=== PATIENT | female | born 1940 | race Caucasian/White ===

== ENCOUNTER 2017-02-15 22:46 | Observation (INO) | payer OTHER ==
--- NOTE | 2017-02-15 23:10 | CPEKG ---
Heart Rate: 88 RR Interval: 682 P-R Interval: 248 QRSD Interval: 90 QT Interval: 392 QTC Interval: 475 P [place]: 49 QRS [place]: 13 T Wave [place]: 15 EKG Severity - ABNORMAL ECG - EKG Impression: SINUS RHYTHM EKG Impression: FIRST DEGREE AV BLOCK EKG Impression: BORDERLINE T ABNORMALITIES, ANTERIOR LEADS Electronically Signed By: Cleveland Nelson 16-Feb-2017 05:57:08
[2017-02-15 23:23] LABS: % IMMATURE GRANULYOCYTES 0.6 % (0.0-1.1); ABSOLUTE IMMATURE GRANULOCYTES 0.05 10^3/uL (0.00-0.10); ADD DIFF? NO; ADD MORPH? NO; ADD SCAN? NO; ATYPICAL LYMPHOCYTE FLAG 0 (0-99); FRAGMENT RBC FLAG 0 (0-99); HEMATOCRIT 41.5 % (38.0-47.0); HEMOGLOBIN 14.4 g/dL (12.6-16.3); LEFT SHIFT FLG 0 (0-99); LIPEMIA HEMOLYSIS FLAG 90 (0-99); MEAN CELL HEMOGLOBIN CONCENTR. 34.7 g/dL (32.4-36.7); MEAN CELL VOLUME 95.2 fL (81.5-99.8); MEAN PLATELET VOLUME 8.8 fL (8.7-11.7); PLATELET CLUMPS FLAG 0 (0-99); PLATELET COUNT 266 10^3/uL (150-400); RED BLOOD CELL COUNT 4.36 10^6/uL (4.18-5.33); RED CELL DISTRIBUTION WIDTH 13.1 % (11.5-15.2)
[2017-02-16 00:12] LABS: ANION GAP 11 mEq/L (8-16); CALCIUM 9.6 mg/dL (8.5-10.4); CARBON DIOXIDE 24 mEq/l (22-31); CHLORIDE 101 mEq/L (97-110); CREATININE 0.7 mg/dL (0.6-1.0); GLOMERULAR FILTRATION RATE > 60; GLUCOSE 133 mg/dL (70-100); SODIUM 136 mEq/L (134-144)
[2017-02-16] MEDS ORDERED: NS 1,000 ML IV SCH ×2 (00:15→05:00)
[2017-02-16 00:18] LABS: COLOR PALE YELLOW; LEUKOCYTE ESTERASE,URINE NEGATIVE (NEGATIVE); NITRITE,URINE NEGATIVE (NEGATIVE)
[2017-02-16 00:24] LABS: TROPONIN I < 0.012 ng/mL (0-0.034)
--- NOTE | 2017-02-16 00:26 | EDPHY ---
H & P Stated Complaint: slurred speech, left sided weakness in hand and foot Time Seen by Provider: 02/15/17 22:57 HPI/ROS: Chief Complaint: Slurred speech, left-sided weakness HPI: 76-year-old woman who drove from [place] all day today. Patient states that she has noted that she has had some weakness in her left side in her left leg all day. Family also noted that she had a little bit of slurring of her speech. The attributed this to some fatigue and dehydration. Patient states when she finally wrapped in [place] she was able to walk up the stairs to get into her family's house. Patient states that symptoms have been present since at least 4 or 5 o'clock in the morning. Does not have a history of the same. No recent illness. No fevers or chills. No nausea or vomiting. No chest pain or shortness of breath. ROS: 10 point Review of Systems is negative except as noted in the HPI. PMH: Breast cancer in 1998 Social History: No smoking, no alcohol, no recreational drug use Family History: non-contributory Physical Exam: Gen: Awake, Alert, No Distress HEENT: Nose: no rhinorrhea Eyes: PERRLA, EOMI Mouth: Dry Neck: Supple, no JVD Chest: nontender, lungs clear to auscultation Heart: S1, S2 normal, no murmur Abd: Soft, non-tender, no guarding Back: no CVA tenderness, no midline tenderness Ext: no edema, non-tender Skin: no rash Neuro: See NIH score Sensation grossly intact, Strength 5/5 in bilateral upper and lower extremities - Personal History Current Tetanus/Diphtheria Vaccine: Unsure Current Tetanus Diphtheria and Acellular Pertussis (TDAP): Unsure - Medical/Surgical History Hx Asthma: No Hx Chronic Respiratory Disease: No Hx Diabetes: No Hx Cardiac Disease: No Hx Renal Disease: No Hx Cirrhosis: No Hx Alcoholism: No Hx HIV/AIDS: No Hx Splenectomy or Spleen Trauma: No Other PMH: right breast CA 1998 Constitutional: Initial Vital Signs Heart Rate 94 02/15/17 22:48 Respiratory Rate 18 02/15/17 22:48 Blood Pressure 169/109 H 02/15/17 22:48 O2 Sat (%) 92 02/15/17 22:48 O2 Delivery Mode Nasal Cannula O2 (L/minute) 2 Allergies/Adverse Reactions: No Known Allergies Allergy (Unverified 02/15/17 22:51) Home Medications: Medication Instructions Recorded NK [No Known Home Meds] 02/15/17 Medical Decision Making - Diagnostics Imaging Results: Imaging Impressions Head CT 02/15/17 22:58 Impression: Elderly brain with mild atrophy and probable small vessel disease. Nothing acute is identified. Imaging: Discussed imaging studies w/ call center receptionist Radiologist ED Course/Re-evaluation: 76 year old with symptoms of TIA. Now with slight ataxia L leg. Pt sx present since 5am. No indication for thrombolytics at this time. We have discussed with Dr. Rahman, hospitalist. Will admit to her service for further evaluation. - Data Points Laboratory Results: Laboratory Results 02/15/17 23:13 02/15/17 23:13 02/15/17 02/15/17 02/15/17 23:50 23:13 23:13 WBC 8.87 10^3/uL 10^3/uL (3.80-9.50) RBC 4.36 10^6/uL 10^6/uL (4.18-5.33) Hgb 14.4 g/dL g/dL (12.6-16.3) POC Hgb Hct 41.5 % % (38.0-47.0) POC Hct MCV 95.2 fL fL (81.5-99.8) MCH 33.0 pg pg (27.9-34.1) MCHC 34.7 g/dL g/dL (32.4-36.7) RDW 13.1 % % (11.5-15.2) Plt Count 266 10^3/uL 10^3/uL (150-400) MPV 8.8 fL fL (8.7-11.7) Neut % (Auto) 84.6 % H % (39.3-74.2) Lymph % (Auto) 8.0 % L % (15.0-45.0) [place] % (Auto) 6.1 % % (4.5-13.0) Eos % (Auto) 0.2 % L % (0.6-7.6) Baso % (Auto) 0.5 % % (0.3-1.7) Nucleat RBC Rel Count 0.0 % % (0.0-0.2) Absolute Neuts (auto) 7.51 10^3/uL H 10^3/uL (1.70-6.50) Absolute Lymphs (auto) 0.71 10^3/uL L 10^3/uL (1.00-3.00) Absolute Monos (auto) 0.54 10^3/uL 10^3/uL (0.30-0.80) Absolute Eos (auto) 0.02 10^3/uL L 10^3/uL (0.03-0.40) Absolute Basos (auto) 0.04 10^3/uL 10^3/uL (0.02-0.10) Absolute Nucleated RBC 0.00 10^3/uL 10^3/uL (0-0.01) Immature Gran % 0.6 % % (0.0-1.1) Immature Gran # 0.05 10^3/uL 10^3/uL (0.00-0.10) POC Sodium Sodium 136 mEq/L mEq/L (134-144) POC Potassium Potassium 4.0 mEq/L mEq/L (3.5-5.2) POC Chloride Chloride 101 mEq/L mEq/L (97-110) Carbon Dioxide 24 mEq/l mEq/l (22-31) Anion Gap 11 mEq/L mEq/L (8-16) POC BUN BUN 17 mg/dL mg/dL (7-23) Creatinine 0.7 mg/dL mg/dL (0.6-1.0) POC Creatinine Estimated GFR > 60 Glucose 133 mg/dL H mg/dL (70-100) POC Glucose Calcium 9.6 mg/dL mg/dL (8.5-10.4) Troponin I < 0.012 ng/mL ng/mL (0-0.034) Urine Color PALE YELLOW Urine Appearance CLEAR Urine pH 6.0 (5.0-7.5) Ur Specific [place] 1.012 (1.002-1.030) Urine Protein NEGATIVE (NEGATIVE) Urine Ketones TRACE H (NEGATIVE) Urine Blood NEGATIVE (NEGATIVE) Urine Nitrate NEGATIVE (NEGATIVE) Urine Bilirubin NEGATIVE (NEGATIVE) Urine Urobilinogen NEGATIVE EU EU (0.2-1.0) Ur Leukocyte Esterase NEGATIVE (NEGATIVE) Urine Glucose NEGATIVE (NEGATIVE) 02/15/17 23:06 WBC RBC Hgb POC Hgb 13.6 gm/dL gm/dL (12.6-16.3) Hct POC Hct 40 % % (38-47) MCV MCH MCHC RDW Plt Count MPV Neut % (Auto) Lymph % (Auto) [place] % (Auto) Eos % (Auto) Baso % (Auto) Nucleat RBC Rel Count Absolute Neuts (auto) Absolute Lymphs (auto) Absolute Monos (auto) Absolute Eos (auto) Absolute Basos (auto) Absolute Nucleated RBC Immature Gran % Immature Gran # POC Sodium 139 mEq/L mEq/L (134-144) Sodium POC Potassium 3.7 mEq/L mEq/L (3.3-5.0) Potassium POC Chloride 97 mEq/L mEq/L (97-110) Chloride Carbon Dioxide Anion Gap POC BUN 17 mg/dL mg/dL (7-23) BUN Creatinine POC Creatinine 0.7 mg/dL mg/dL (0.6-1.0) Estimated GFR Glucose POC Glucose 134 mg/dL H mg/dL (70-100) Calcium Troponin I Urine Color Urine Appearance Urine pH Ur Specific [place] Urine Protein Urine Ketones Urine Blood Urine Nitrate Urine Bilirubin Urine Urobilinogen Ur Leukocyte Esterase Urine Glucose Point of Care Test Results: 02/15/17 23:06 POC Sodium 139 POC Potassium 3.7 POC Chloride 97 POC BUN 17 POC Creatinine 0.7 POC Glucose 134 H Departure - Departure Disposition: [facility] Inpatient Acute Clinical Impression: Transient cerebral ischemia Condition: Fair NIH Stroke Scale Date of Exam: 02/15/17 Time of Exam: 23:10 Level of Consciousness: Alert LOC Questions: Answers Both LOC Commands: Performs Both Correctly Best Gaze: Normal Visual: No Visual Loss Facial Palsy: Normal Motor Arm-Left: No Drift Motor Arm-Right: No Drift Motor Leg-Left: No Drift Motor Leg-Right: No Drift Limb Ataxis: Present in One Limb Sensory: Normal Best Language: No Aphasia Dysarthria: Normal Extinction and Inattention (Neglect): No Abnormality NIH Scale Score: 1
[2017-02-16] MEDS ORDERED: ONDANSETRON DISINTEGRATING 4 MG TAB PO PRN (04:47)
[2017-02-16] MEDS ORDERED: ONDANSETRON 4 MG/2 ML VIAL IVP PRN (04:47)
[2017-02-16] MEDS ORDERED: ACETAMINOPHEN 325 MG TAB PO PRN (04:47)
[2017-02-16] MEDS ORDERED: HYDROCODONE/APAP 5/325 TAB PO PRN (04:47)
[2017-02-16 05:27] LABS: % IMMATURE GRANULYOCYTES 0.3 % (0.0-1.1); ABSOLUTE IMMATURE GRANULOCYTES 0.02 10^3/uL (0.00-0.10); ADD DIFF? NO; ADD MORPH? NO; ADD SCAN? NO; ATYPICAL LYMPHOCYTE FLAG 0 (0-99); FRAGMENT RBC FLAG 0 (0-99); HEMATOCRIT 37.5 % (38.0-47.0); HEMOGLOBIN 12.7 g/dL (12.6-16.3); LEFT SHIFT FLG 0 (0-99); LIPEMIA HEMOLYSIS FLAG 90 (0-99); MEAN CELL HEMOGLOBIN 32.4 pg (27.9-34.1); MEAN CELL HEMOGLOBIN CONCENTR. 33.9 g/dL (32.4-36.7); MEAN CELL VOLUME 95.7 fL (81.5-99.8); MEAN PLATELET VOLUME 8.5 fL (8.7-11.7); PLATELET CLUMPS FLAG 0 (0-99); PLATELET COUNT 213 10^3/uL (150-400); RED BLOOD CELL COUNT 3.92 10^6/uL (4.18-5.33); RED CELL DISTRIBUTION WIDTH 13.1 % (11.5-15.2)
[2017-02-16 05:31] LABS: APTT 28.1 SEC (23.0-38.0); INR 1.11 (0.83-1.16); PROTIME(PATIENT) 14.2 SEC (12.0-15.0)
[2017-02-16 05:42] LABS: ANION GAP 8 mEq/L (8-16); CALCIUM 9.1 mg/dL (8.5-10.4); CARBON DIOXIDE 24 mEq/l (22-31); CHLORIDE 107 mEq/L (97-110); CHOLESTEROL 202 mg/dL (140-220); CHOLESTEROL/HDL RATIO 4.21 RATIO (1.00-4.44); CREATININE 0.6 mg/dL (0.6-1.0); GLOMERULAR FILTRATION RATE > 60; GLUCOSE 107 mg/dL (70-100); HIGH DENSITY LIPOPROTEIN 48 mg/dL (40-85); LDL/HDL RATIO 2.88 RATIO (1.00-3.22); LOW DENSITY LIPOPROTEIN 138 mg/dL (80-100); MAGNESIUM 2.2 mg/dL (1.6-2.3); NON-HIGH DENSITY LIPOPROTEIN 154 mg/dL (90-129); POTASSIUM 3.9 mEq/L (3.5-5.2); SODIUM 139 mEq/L (134-144); TRIGLYCERIDE 84 mg/dL (35-135); VERY LOW DENSITY LIPOPROTEINS 16 mg/dL (8-25)
[2017-02-16 05:54] LABS: TROPONIN I < 0.012 ng/mL (0-0.034)
--- NOTE | 2017-02-16 07:38 | PDGENHP ---
History and Physical - Chief Complaint L sided weaknes - History of Present Illness Patient is a 76 year old female who reports a medical history of depression, distant history of breast cancer who presents to [facility] ED with complaint of difficulty ambulating due to L sided weakness. Patient states she spent the who day of 02/15 driving with her grandchildren from [place] to [place]. She did not move from the car much all day; reports she felt significantly tired as she did not sleep much on 02/14 in preparation for the trip. 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 She could not say when her symptoms started. She also reports her grandchildren also told her she was having speech dysarthria throughout the day prior to arrival. Patient denies any associated chest pain, palpitations, shortness of breath or headache/dizziness. Given her inability to walk, she decided to come to the ED for further evaluation. On arrival to the Ed, patient was afebrile and hemodynamically stable. Labs revealed normal CBC, BMP, negative UA. Exam was significant for slight L sided lower extremity weakness. CT head was obtained and showed chronic atrophy, microvascular changes, but no acute abnormalities. She was then admitted for further management. History Information - Allergies/Home Medication List Allergies/Adverse Reactions: No Known Allergies Allergy (Unverified 02/15/17 22:51) Home Medications: NK [No Known Home Meds] 02/15/17 [Last Taken Unknown] I have personally reviewed and updated: family history, medical history, social history, surgical history - Past Medical History Additional medical history: distant h/o breast cancer. depression, well controlled - Surgical History Additional surgical history: breast tumor resection - Family History Positive for: non-pertinent - Social History Smoking Status: Never smoked Alcohol Use: None Drug Use: None Additional social history: Lives in [place], visiting brother in [place]. Review of Systems ROS: 10pt was reviewed & negative except for what was stated in HPI & below Physical Exam Temp Pulse Resp BP Pulse Ox 36.9 C 76 16 168/83 H 95 02/16/17 02:14 02/16/17 02:14 02/16/17 02:14 02/16/17 02:14 02/16/17 02:14 O2 (L/minute) 2 Constitutional: no apparent distress, appears nourished, not in pain Eyes: PERRL, anicteric sclera, EOMI Ears, Nose, Mouth, Throat: hearing normal, ears appear normal, no oral mucosal ulcers, dry mucous membranes (very dry mm) Cardiovascular: regular rate and rhythym, no murmur, rub, or gallop, pulses symmetric bilaterally, No JVD, No edema Peripheral Pulses: 2+: dorsalis-pedis (R), dorsalis-pedis (L) Respiratory: no respiratory distress, no rales or rhonchi, clear to auscultation Gastrointestinal: normoactive bowel sounds, soft, non-tender abdomen, no palpable masses, No guarding, No rebound, No distension Genitourinary: no bladder fullness, no bladder tenderness Skin: warm, normal color, no rashes or abrasions, no fluctuance, no induration, No mottled Neurologic: AAOx3, sensation intact bilaterally, weakness (LLE 4/5 in strength; LUE 4+/5 slightly reduced when compared to R side), CN II-XII Intact (except dysarthria present), No numbness, No pronator drift, No facial droop Psychiatric: interacting appropriately, not anxious, not encephalopathic, thought process linear Lab Data & Imaging Review 02/16/17 05:02 02/16/17 05:02 WBC 6.43 10^3/uL (3.80-9.50) 02/16/17 05:02 RBC 3.92 10^6/uL (4.18-5.33) L 02/16/17 05:02 Hgb 12.7 g/dL (12.6-16.3) 02/16/17 05:02 POC Hgb 13.6 gm/dL (12.6-16.3) 02/15/17 23:06 Hct 37.5 % (38.0-47.0) L 02/16/17 05:02 POC Hct 40 % (38-47) 02/15/17 23:06 MCV 95.7 fL (81.5-99.8) 02/16/17 05:02 MCH 32.4 pg (27.9-34.1) 02/16/17 05:02 MCHC 33.9 g/dL (32.4-36.7) 02/16/17 05:02 RDW 13.1 % (11.5-15.2) 02/16/17 05:02 Plt Count 213 10^3/uL (150-400) D 02/16/17 05:02 MPV 8.5 fL (8.7-11.7) L 02/16/17 05:02 Neut % (Auto) 75.1 % (39.3-74.2) H 02/16/17 05:02 Lymph % (Auto) 14.5 % (15.0-45.0) L 02/16/17 05:02 [place] % (Auto) 9.3 % (4.5-13.0) 02/16/17 05:02 Eos % (Auto) 0.5 % (0.6-7.6) L 02/16/17 05:02 Baso % (Auto) 0.3 % (0.3-1.7) 02/16/17 05:02 Nucleat RBC Rel Count 0.0 % (0.0-0.2) 02/16/17 05:02 Absolute Neuts (auto) 4.83 10^3/uL (1.70-6.50) 02/16/17 05:02 Absolute Lymphs (auto) 0.93 10^3/uL (1.00-3.00) L 02/16/17 05:02 Absolute Monos (auto) 0.60 10^3/uL (0.30-0.80) 02/16/17 05:02 Absolute Eos (auto) 0.03 10^3/uL (0.03-0.40) 02/16/17 05:02 Absolute Basos (auto) 0.02 10^3/uL (0.02-0.10) 02/16/17 05:02 Absolute Nucleated RBC 0.00 10^3/uL (0-0.01) 02/16/17 05:02 Immature Gran % 0.3 % (0.0-1.1) 02/16/17 05:02 Immature Gran # 0.02 10^3/uL (0.00-0.10) 02/16/17 05:02 PT 14.2 SEC (12.0-15.0) 02/16/17 05:02 INR 1.11 (0.83-1.16) 02/16/17 05:02 APTT 28.1 SEC (23.0-38.0) 02/16/17 05:02 POC Sodium 139 mEq/L (134-144) 02/15/17 23:06 Sodium 139 mEq/L (134-144) 02/16/17 05:02 POC Potassium 3.7 mEq/L (3.3-5.0) 02/15/17 23:06 Potassium 3.9 mEq/L (3.5-5.2) 02/16/17 05:02 POC Chloride 97 mEq/L (97-110) 02/15/17 23:06 Chloride 107 mEq/L (97-110) 02/16/17 05:02 Carbon Dioxide 24 mEq/l (22-31) 02/16/17 05:02 Anion Gap 8 mEq/L (8-16) 02/16/17 05:02 POC BUN 17 mg/dL (7-23) 02/15/17 23:06 BUN 13 mg/dL (7-23) 02/16/17 05:02 Creatinine 0.6 mg/dL (0.6-1.0) 02/16/17 05:02 POC Creatinine 0.7 mg/dL (0.6-1.0) 02/15/17 23:06 Estimated GFR > 60 02/16/17 05:02 Glucose 107 mg/dL (70-100) H 02/16/17 05:02 POC Glucose 134 mg/dL (70-100) H 02/15/17 23:06 Calcium 9.1 mg/dL (8.5-10.4) 02/16/17 05:02 Magnesium 2.2 mg/dL (1.6-2.3) 02/16/17 05:02 CK-MB (CK-2) Fraction 0.90 ng/mL (0-3.19) 02/16/17 05:02 Troponin I < 0.012 ng/mL (0-0.034) 02/16/17 05:02 Triglycerides 84 mg/dL (35-135) 02/16/17 05:02 Cholesterol 202 mg/dL (140-220) 02/16/17 05:02 Cholesterol Risk Factr 1.0 (0.2-1.0) 02/16/17 05:02 LDL Cholesterol, Calc 138 mg/dL (80-100) H 02/16/17 05:02 LDL Risk Factor 0.8 (0.2-1.0) 02/16/17 05:02 VLDL Cholesterol 16 mg/dL (8-25) 02/16/17 05:02 Non-HDL Cholesterol 154 mg/dL (90-129) H 02/16/17 05:02 HDL Cholesterol 48 mg/dL (40-85) 02/16/17 05:02 LDL/HDL Ratio 2.88 RATIO (1.00-3.22) 02/16/17 05:02 Cholesterol/HDL Ratio 4.21 RATIO (1.00-4.44) 02/16/17 05:02 TSH 3.720 uIU/mL (0.465-4.680) 02/16/17 05:02 Urine Color PALE YELLOW 02/15/17 23:50 Urine Appearance CLEAR 02/15/17 23:50 Urine pH 6.0 (5.0-7.5) 02/15/17 23:50 Ur Specific [place] 1.012 (1.002-1.030) 02/15/17 23:50 Urine Protein NEGATIVE (NEGATIVE) 02/15/17 23:50 Urine Ketones TRACE (NEGATIVE) H 02/15/17 23:50 Urine Blood NEGATIVE (NEGATIVE) 02/15/17 23:50 Urine Nitrate NEGATIVE (NEGATIVE) 02/15/17 23:50 Urine Bilirubin NEGATIVE (NEGATIVE) 02/15/17 23:50 Urine Urobilinogen NEGATIVE EU (0.2-1.0) 02/15/17 23:50 Ur Leukocyte Esterase NEGATIVE (NEGATIVE) 02/15/17 23:50 Urine Glucose NEGATIVE (NEGATIVE) 02/15/17 23:50 Visualized and Interpreted imaging results: Yes Interpretation: CT head: no acute abnormalities, chronic microvascular changes Visualized and Interpreted EKG results: Yes EKG Interpretation: Positive for: normal sinsus rhythm Assessment & Plan Assessment: Patient is a 76 year old female with no significant pmh who just completed a [address] trip over the course of 02/15, who presented to the ED with new onset L sided weakness and dysarthria. Onset of symptoms is difficult to ascertain as patient was sitting without need for movement until she arrived at her destination in [place] this evening. Initial exam is concerning for TIA vs CVA. Plan: # new L sided weakness Patient has a mild, but perceptible weakness of her L lower and upper extremities when compared to the R as well as dysarthria. Initial CT head is negative for acute changes. Infectious etiology ruled out with negative UA, no leukocytosis. Presentation is concerning for a CVA, not a tpa candidate as onset of symptoms is not known. Will consult neurology, check carotid dopplers, TTE, lipid panel and TSH. 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
[2017-02-16] MEDS ORDERED: ENOXAPARIN 40 MG/0.4 ML SYR SC SCH (09:00)
[2017-02-16] MEDS ORDERED: ASPIRIN 81 MG CHEWABLE TAB PO SCH (09:00)
--- NOTE | 2017-02-16 09:48 | GCON ---
[f rep st] CONSULTATION NEUROLOGIC CONSULTATION REFERRING PHYSICIAN: Stefania Rahman MD HISTORY: The patient is a 76-year-old woman, who I am asked to see in neurologic consultation elenita sheyla a chief complaint of left-sided weakness. History is obtained directly from the patient, as we ll as review of the medical records. She said that early yesterday morning, she had gotten up after very limited sleep and drove from [place] to [place] with 2 grandchildren. She said that when she got to [place] yesterday evening, she noticed that it was a little hard to go up the stairs and sh e could tell that her left side just was not quite working well and she perhaps had a little bit of slurred speech. There was no obvious alleviating or triggering factor. Symptoms just involved the left side and were mild in the severity. It was a weakness rather than a numbness and has really no t completely resolved. She does not have any associated headache or changes in bowel or bladder fun ction. She denies feeling confused. She has never had similar problems before. REVIEW OF SYSTEMS: A 10-point review of systems was completed and unremarkable, with specific aspec ts being negative that included chest pain, palpitations, or shortness of breath. PAST MEDICAL HISTORY: Notable for breast cancer in 1998. SOCIAL HISTORY: She normally lives alone in [place] and was just simply traveling here to see her don floreser and take her grandchildren on a vacation. She does not smoke, does not drink alcohol, and richards s no history of drug use. 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 FAMILY HISTORY: Negative for stroke or seizure. MEDICATIONS: She is not on any routine medications. ALLERGIES: She has no known drug allergies. PHYSICAL EXAMINATION: VITAL SIGNS: Her blood pressure is 158/82, pulse of 78, respirations 16, tem perature 36.7. GENERAL: She is a well-developed woman in no acute distress. Eyes are clear. NECK : Supple with no bruits or masses. CARDIAC: Regular rate and rhythm with no murmur. EXTREMITIES: No cyanosis or edema. NEUROLOGIC EXAMINATION: She is awake, alert, and oriented to person, place, and time. She has good recent and remote memory, as well as normal attention span and concentration. Language skills are preserved and has a good general fund of knowledge. She has a friendly, euthymic affect. Pupils ar e 2 mm and reactive. Funduscopic exam is unremarkable. Visual love are full. Extraocular moveme nts are intact but no nystagmus. Normal facial sensation and facial strength. Palate elevates symm etrically, and tongue protrudes midline. Hearing is preserved. No weakness of head turning or shou lder shrug. Motor exam: Normal muscle, bulk, and tone with 5/5 strength on the right side in the upper extremit ies but a little proximal weakness in the right lower extremity and also more weakness in the left u pper extremity and left lower extremity compared to the right, although the difference is more subtl e in the legs than the arms. Rapid alternating movements are clearly slower in the left hand compar ed to the right, and there is a little bit of a drift. Her gait is mildly unsteady with a slight te ndency to walk toward the left a little bit. Reflexes are 2+ and symmetric with no Babinski signs. Sensation is preserved for temperature and light touch. No ataxia on [id number] or heel-to-alli n, although the movements are a little slower on the left than the right. She has an NIH stroke sca le of 2. DIAGNOSTIC TESTING: The diagnostic studies thus far include a head CT, which was unremarkable. Car otid ultrasound from earlier this morning reveals plaque formation bilaterally but no hemodynamicall y significant stenosis very likely. LABORATORY STUDIES: White count of 6000, hematocrit 37%. Chemistries unremarkable except LDL dario sterol of 138. Urinalysis unremarkable. Normal INR. IMPRESSION: I believe this patient has most likely suffered a small stroke in the right subcortical region causing left arm and leg weakness. It is possible for there to be other localizations that would include the left cerebellar hemisphere, although she is not particularly ataxic. Brainstem le bossman seems unlikely with lack of any cranial nerve findings. The head CT rules out hemorrhage but i s not sensitive enough to pickle sorter a small stroke if that is actually present. Alternative explanati ons simply seem much less likely given the lack of any other medical problems. She does have a hist ory of breast cancer, so looking for any unexpected metastases is reasonable as well with MRI. She has elevated cholesterol. She is already taking a baby aspirin a day since hospitalization. We viri l continue that. She should be offered statin therapy for secondary stroke prophylaxis. She needs physical and occupational therapy and full assessment for disposition, depending on her clinical cou rse. We will obtain a brain MRI today, and I told her we can make decisions on her safety to be out of the hospital and the need for any additional workup. We should also check echocardiogram. /[id number]/MODL
--- NOTE | 2017-02-16 12:08 | HOSPPROG ---
Hospitalist Progress Note Assessment/Plan: Assessment: Patient is a 76 year old female with no significant pmh who just completed a [address] trip over the course of 02/15, who presented to the ED with new onset L sided weakness and dysarthria. Onset of symptoms is difficult to ascertain as patient was sitting without need for movement until she arrived at her destination in [place] this evening. Initial exam is concerning for TIA vs CVA. Plan: # new L sided weakness suspect CVA -neuro consult reviewed and appreciated -cont asa as ordered and start lipitor LDL>100 # depression Stable, resume home med # dispo: admit to observation # gen: regular diet after RIB TRIM SEPARATOR eval DVT ppx: lovenox if present for > 24 hours Full code will change to inpatient status Subjective: improving left sided weakness Objective: Vital Signs Temp Pulse Resp BP Pulse Ox 36.7 C 78 16 158/82 H 90 L 02/16/17 07:43 02/16/17 07:43 02/16/17 07:43 02/16/17 07:43 02/16/17 07:43 Laboratory Results 02/16/17 05:02 02/16/17 05:02 02/15/17 02/16/17 02/17/17 05:59 05:59 05:59 Intake Total 1100 Balance 1100 PT 14.2 SEC (12.0-15.0) 02/16/17 05:02 INR 1.11 (0.83-1.16) 02/16/17 05:02 - Physical Exam Constitutional: no apparent distress, appears nourished, not in pain Cardiovascular: regular rate and rhythym, no murmur, rub, or gallop Respiratory: no respiratory distress, no rales or rhonchi, clear to auscultation Neurologic: AAOx3, pronator drift (left), CN II-XII Intact, No facial droop ICD10 Worksheet Patient Problems: Problems Problem Status Onset Transient cerebral ischemia Acute
[2017-02-16] MEDS ORDERED: FLUoxetine 20 MG CAP PO SCH (12:15)
[2017-02-16 12:18] VITALS: RESP 18
--- NOTE | 2017-02-16 13:08 | ECHO ---
[id number] + + [address] : : [place] [address] : : [phone] + + Adult Echocardiographic Report + -------+ :Name: DALTON SCHRADERJim Date: 02/16/2017 11:58 AM : : Hospital Admission Number: [id number] Locati on: 340: :: 1940 Gender: Female Height: 65 in : :Age: 76 yrs Race: WH Weight: 173 lb : :Reason For Study: Ischemic stroke : : BSA: 1.9 meter s2 : + -------+ MMode/2D Measurements \T\ Calculations IVSd: 0.84 cm LVIDd: 4.7 cm FS: 37.4 % Ao root diam: 3.8 cm LVPWd: 0.96 cm LVIDs: 3.0 cm EDV(Teich): 103.4 ml LA dimension: 3.7 cm ESV(Teich): 33.8 ml EF(Teich): 67.3 % Normal Measurement Values: + + :LVIDd (3.5-5.7cm) IVSd (0.6-1.1cm) LVPWd (0.6-1.1cm) Aortic Root (2.0-3.7cm)Left Atrium (1.5-4.0cm): :LV Vol(d) (76-115ml) LV Vol(s) (29-48ml) Ejec Fraction (50-65%)PV Carl (0.6- 1.2m/s) TV Carl (0.4-1.0m/s) : :MV E Carl (0.8-1.0m/s)MV A Carl (0.3-1.0m/s)LVOT Carl (0.7-1.2m/s) Asc Ao Carl ( 0.9-1.8m/s) : + + Doppler Measurements \T\ Calculations MV E max carl: 62.2 cm/sec Ao V2 max: 131.7 cm/sec MV A max carl: 86.9 cm/sec Ao max P.9 mmHg MV E/A: 0.72 Left Ventricle The left ventricle is normal in size. There is normal left ventricular wall thickness. Left ventricular systolic function is normal. Ejection Fraction = 60-65%. There is Doppler evidence for diastolic dysfunction. No regional wall motion abnormalities noted. Right Ventricle The right ventricle is normal in size and function. Atria The left atrial size is normal. Right atrial size is normal. Injection of contrast documented no interatrial shunt. Mitral Valve The mitral valve is normal in structure and function. There is mild mitral regurgitation. Tricuspid Valve Normal tricuspid valve. There is trace tricuspid regurgitation. Aortic Valve The aortic valve opens well. Mild aortic sclerosis. The aortic valve is trileaflet. There is no aortic stenosis. There is no aortic insufficiency. Pulmonic Valve The pulmonic valve is not well visualized. There is no pulmonic valvular regurgitation. Great Vessels The aortic root is normal size. Pericardium/Pleural There is no pericardial effusion. Conclusion A complete two-dimensional transthoracic echocardiogram was performed (2D, M-mode, Doppler and color flow Doppler). (1) Left ventricular systolic ejection fraction was normal (60-65%) - normal wall motion (2) No left ventricular hypertrophy (3) Diastolic dysfunction was present (4) Normal right ventricular size and function (5) Normal atrial dimensions - bubble contrast injection without right to left passage noted (6) Mild mitral regurgitation (7) Trileaflet aortic valve with mild sclerosis, no stenosis, and no appreciable insufficiency (8) Physiologic tricuspid regurgitation (9) Poor visualization of the pulmonic valve (10) No comparison echocardiograms Final Reading Physician: Beryl Carrion signed on 02/16/2017 01:06 PM Ordering Physician: Stefania Rahman Performed By: Mela Nguyen RDCS
[2017-02-16] MEDS ORDERED: ATORVASTATIN CALCIUM 20 MG TAB PO SCH (15:00)
[2017-02-16 15:34] VITALS: BP 139/97; PULSE 98; TEMP 98.2; O2SAT 90
--- NOTE | 2017-02-16 17:55 | GDS ---
[f rep st] DISCHARGE SUMMARY DISCHARGE DIAGNOSES: 1. Acute lacunar infarct involving the right basal ganglia. 2. Depression. CONSULTANTS: Dr. Darryl Oneill, associate of Neurology. HOSPITAL COURSE AND STAY BY PROBLEM: Acute lacunar infarct involving the right basal ganglia: The patient presented to the hospital on 02/16/2017 reporting left-sided weakness. She is not a yadiel te for tPA. She is admitted to the floor where she has she had an echocardiogram done, which showed an ejection fraction of 60-65% and no obvious thrombus. Carotid Doppler study was done on 02/17/20 17, which did not show any flow-limiting carotid artery stenosis. Brain MRI, confirmed acute lacuna r infarct involving the right basal ganglia. During the time of my exam, on the morning of 02/16/2017, the patient was rather pressured to leave the hospital. She told me that she wanted to leave as soon as possible. I discussed the case with Dr. Darryl Oneill, on the afternoon of the and thought it was reasonable for her to discharge home with close followup with her primary care provider as well as a neurologist in her home state o [facility]. We did obtain a lipid panel where her cholesterol was 202 and her LDL was 138, with HDL 48. We will plan on discharging her on Lipitor as well as an aspirin. PHYSICAL EXAM ON DISCHARGE: Please refer to progress note in [facility]. DIAGNOSTICS DONE THIS HOSPITAL STAY: Brain MRI done 02/16/2017. Echocardiogram done 02/16/2017. C arotid Doppler study done 02/16/2017. Refer to reports for details. Total cholesterol 202, LDL 138 , HDL 48. DISCHARGE MEDICATIONS: Please refer to discharge medication reconciliation [facility] for full detail s. Below is a preliminary list. Aspirin 81 mg daily, Lipitor 20 mg daily. All other home medicati ons were continued at the usual home dosages. DISCHARGE INSTRUCTIONS: The patient will be discharged from the hospital where she was instructed t o take aspirin and Lipitor daily. She should follow up with her primary care provider back home in [place] and should be seen by a neurologist. She should not drive until she is cleared by her docto rs back home. She should have a repeat lipid panel done in 6 weeks to ensure her LDL is less than 1 00. /[id number]/MODL
== END 2017-02-16 18:37 | disposition home or self-care (01) ==
LOC: INTOOBSV 02-16 00:26 → F3N 02-16 01:17
PROVIDERS: ADMIT Internal Medicine; ATTEND Family Medicine
DX: I63.8 Other cerebral infarction (principal); Z85.3 Personal history of malignant neoplasm of breast; F32.9 Major depressive disorder, single episode, unspecified
CPT/HCPCS: 70450; 70551; 92523; 92610; 93005; 93306; 93880; 97116; 97162; 97165; G0378; G8978; G8979; G8987; G8988; G8996; G8997; G8998; G9165; G9166; J1650; 82947-QW